=== PATIENT | female | born 1970 | race Caucasian/White ===

== ENCOUNTER 2016-12-20 03:10 | Inpatient (IN) | payer OTHER ==
[~2016-12-20] VITALS: Ht 152.4 cm; Wt 83.4 kg
[2016-12-20] VITALS (17 sets, daily range): BP systolic 90–119; BP diastolic 50–74; PULSE 60–99; RESP 16–29; TEMP 97.9–98.3; O2SAT 88–100
[2016-12-20] MEDS ORDERED: ZYRTEC PO (03:30)
[2016-12-20] MEDS ORDERED: SODIUM CHLOR 0.9% 1000 ML INJ 1,000 ML IV ONE (04:45)
[2016-12-20] MEDS ORDERED: TRAM50TA PO (05:02)
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
[2016-12-20] MEDS ORDERED: HYDROmorphone HCL PF 1 MG/ML VIAL IV PUSH ONE ×2 (05:15→07:15)
[2016-12-20] MEDS ORDERED: KETOROLAC TROMETHAMINE 30 MG/ML (IVP) VIAL IV PUSH ONE (05:15)
[2016-12-20] MEDS ORDERED: SODIUM CHLORIDE 0.9% FLUSH 10 ML FLUSH IVF PRN ×3 (06:00→07:30)
[2016-12-20] MEDS ORDERED: IOHEXOL 350 MG/ML 10 ML VIAL (for RAD DIAG) IV ONE ×2 (06:15→07:00)
[2016-12-20 06:17] LABS: AUTOMATED NEUTROPHIL # 19.2 TH/MM3 (1.8-7.7); BASOPHIL # 0.1 TH/MM3 (0-0.2); BASOPHIL % 0.3 % (0.0-2.0); EOSINOPHIL % 0.1 % (0.0-4.0); HEMATOCRIT 38.5 % (35.0-46.0); HEMO FLAGS DIFF FINAL; LYMPH % 6.2 % (9.0-44.0); LYMPHOCYTE # 1.3 TH/MM3 (1.0-4.8); MEAN CORPUSCULAR HEMOGLOBIN 30.2 PG (27.0-34.0); MEAN CORPUSCULAR HGB CONC 32.8 % (32.0-36.0); MONO % 4.5 % (0.0-8.0); NEUT % 88.9 % (16.0-70.0); PLATELET COUNT 298 TH/MM3 (150-450); RED BLOOD COUNT 4.19 MIL/MM3 (4.00-5.30); RED CELL DISTRIBUTION WIDTH 13.1 % (11.6-17.2); WHITE BLOOD COUNT 21.6 TH/MM3 (4.0-11.0)
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
[2016-12-20 06:50] LABS: BICARBONATE 20.9 MEQ/L (21.0-32.0); POTASSIUM 3.4 MEQ/L (3.5-5.1)
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
[2016-12-20] MEDS ORDERED: ACETAMINOPHEN 325 MG TAB PO PRN (07:30)
[2016-12-20] MEDS ORDERED: CHLORHEXIDINE GLUCONATE 2 % 1 PACK (2 CLOTHS) TOP PRN (07:30)
[2016-12-20] MEDS ORDERED: SODIUM CHLORIDE 0.9% FLUSH 10 ML FLUSH IV FLUSH PRN (07:30)
[2016-12-20] MEDS ORDERED: MISCELLANEOUS NURSING INFORMATION XX SCH (07:30)
[2016-12-20] MEDS ORDERED: ONDANSETRON HCL 4 MG/2 ML VIAL IV PRN ×2 (07:30)
[2016-12-20] MEDS ORDERED: ENALAPRILAT 1.25 MG/ML VIAL IV PRN (07:30)
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
[2016-12-20] MEDS ORDERED: BISACODYL 10 MG SUPP RECTAL PRN (08:00)
[2016-12-20] MEDS: ACETAMINOPHEN 1000 MG/100 ML VIAL IV SCH ×3 (09:00→21:01)
[2016-12-20] MEDS: DOCUSATE SODIUM 50 MG/SENNA 8.6 MG TAB PO SCH ×2 (09:00→21:00)
[2016-12-20] MEDS: METHOCARBAMOL INJ 1,000 MG in SODIUM CHLOR 0.9% 250 ML INJ 240 ML IV SCH ×2 (09:00→15:31)
--- NOTE | 2016-12-20 09:10 | RADRPT ---
EXAM DATE/TIME: 12/20/2016 08:43 [facility] COMPARISON: CT THORACIC SPINE W/O CONTRAST, December 20, 2016, 6:12. INDICATIONS : Trauma. MEDICAL HISTORY : None. SURGICAL HISTORY : None. ENCOUNTER: Initial ACUITY: 1 day PAIN SCORE: 5/10 LOCATION: Paraspinal TECHNIQUE: Multiplanar multisequence MRI of the thoracic spine was performed. FINDINGS: Multiple fractures are present discussed in detail on the prior CT examination the worst area is a co mpression fracture of T5 which is basically a burst fracture with approximate 60% reduction in the mi d height. T1-T2: No appreciable compromise to the thecal sac, spinal cord, or the exiting nerve roots are seen. The neural foramina are grossly patent bilaterally. T2-T3: No appreciable compromise to the thecal sac, spinal cord, or the exiting nerve roots are seen. The neural foramina are grossly patent bilaterally. T3-T4: No appreciable compromise to the thecal sac, spinal cord, or the exiting nerve roots are seen. The neural foramina are grossly patent bilaterally. T4-T5: No appreciable compromise to the thecal sac, spinal cord, or the exiting nerve roots are seen. The neural foramina are grossly patent bilaterally. T5-T6: There is effacement of the anterior CSF space due to retropulsed fragment with compromise to the anterior CSF space abutting the anterior portion of the spinal cord, however overall no signif icant thecal sac stenosis is seen and there is no cord compression. T6-T7: No appreciable compromise to the thecal sac, spinal cord, or the exiting nerve roots are seen. The neural foramina are grossly patent bilaterally. T7-T8: No appreciable compromise to the thecal sac, spinal cord, or the exiting nerve roots are seen. The neural foramina are grossly patent bilaterally. T8-T9: No appreciable compromise to the thecal sac, spinal cord, or the exiting nerve roots are seen. The neural foramina are grossly patent bilaterally. T9-T10: No appreciable compromise to the thecal sac, spinal cord, or the exiting nerve roots are see n. The neural foramina are grossly patent bilaterally. T10-T11: No appreciable compromise to the thecal sac, spinal cord, or the exiting nerve roots are se en. The neural foramina are grossly patent bilaterally. T11-T12: No appreciable compromise to the thecal sac, spinal cord, or the exiting nerve roots are se en. The neural foramina are grossly patent bilaterally. T12-L1: No appreciable compromise to the thecal sac, spinal cord, or the exiting nerve roots are s een. The neural foramina are grossly patent bilaterally. CONCLUSION: Multiple fractures discussed in detail on the prior CT examination best seen on CT wi th approximate 60% compression burst fracture of T5 retropulsed fragment at this site abutting the an terior portion of the spinal cord without any significant cord compression. Herb Ortega MD on December 20, 2016 at 9:03 Board Certified Radiologist. This report was verified electronically.
[2016-12-20] MEDS: SODIUM CHLOR 0.9% 1000 ML INJ 1,000 ML IV SCH ×2 (09:45→21:03)
[2016-12-20] MEDS ORDERED: LIDOCAINE HCL 1% 50 ML VIAL ONE (09:58)
[2016-12-20] MEDS ORDERED: NALOXONE HCL 0.4 MG/ML AMP IV PRN (11:15)
[2016-12-20] MEDS: MORPHINE SULFATE 30 MG/30 ML PCA IV SCH ×2 (12:08→18:17)
--- NOTE | 2016-12-20 12:10 | RADRPT ---
EXAM DATE/TIME: 12/20/2016 11:59 [facility] COMPARISON: CT THORAX W CONTRAST, December 20, 2016, 6:12. CT ABDOMEN & PELVIS W CONTRAST, December 20, 2016, 6:56. [facility] SINGLE AP, December 20, 2016, 4:42. INDICATIONS : Post left side chest tube placement. MEDICAL HISTORY : None. SURGICAL HISTORY : None. ENCOUNTER: Initial ACUITY: 1 day PAIN SCORE: 8/10 LOCATION: Bilateral chest FINDINGS: Interval placement of left-sided pigtail chest tube. No significant residual pneumothorax. Minimal miller bcutaneous emphysema at the insertion site. Lungs are hypoaerated with mild by basilar airspace disea se. Cardiomediastinal contours are stable. Redemonstration of multiple rib fractures and upper thorac ic vertebral fractures. CONCLUSION: 1. Status post left-sided chest tube placement with no significant residual pneumothorax. Yfn Villafana MD on December 20, 2016 at 12:06 Board Certified Radiologist. This report was verified electronically.
[2016-12-20] MEDS: PCA - TOTAL MG MORPHINE DELIVERED PER SHIFT SCH ×2 (14:00→21:08)
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
[2016-12-20] MEDS: REMOVE OLD LIDOCAINE PATCH T-DERMAL SCH (21:00)
[2016-12-20] MEDS: SODIUM CHLORIDE 0.9% FLUSH 10 ML FLUSH IV FLUSH SCH ×2 (21:03→21:07)
[2016-12-20] MEDS: LIDOCAINE HCL 5% PATCH T-DERMAL SCH (21:04)
[2016-12-20] MEDS: PANTOPRAZOLE SODIUM 40 MG VIAL IVP SCH (21:04)
[2016-12-20] MEDS: BACITRACIN TOP OINT 15 GM TUBE TOP SCH ×2 (21:05→21:09)
[2016-12-21] VITALS (14 sets, daily range): BP systolic 90–144; BP diastolic 55–72; PULSE 66–96; RESP 15–32; TEMP 97.8–98.8; O2SAT 93–96
[2016-12-21] MEDS: METHOCARBAMOL INJ 1,000 MG in SODIUM CHLOR 0.9% 250 ML INJ 240 ML IV SCH ×3 (01:41→17:00)
[2016-12-21] MEDS: ACETAMINOPHEN 1000 MG/100 ML VIAL IV SCH (03:15)
[2016-12-21 04:15] LABS: BASOPHIL % 0.4 % (0.0-2.0); EOSINOPHIL % 0.4 % (0.0-4.0); HEMO FLAGS DIFF FINAL; LYMPH % 11.4 % (9.0-44.0); MEAN CELL VOLUME 90.9 FL (80.0-100.0); MEAN CORPUSCULAR HEMOGLOBIN 31.1 PG (27.0-34.0); MEAN CORPUSCULAR HGB CONC 34.2 % (32.0-36.0); NEUT % 79.8 % (16.0-70.0); PLATELET COUNT 223 TH/MM3 (150-450); RED BLOOD COUNT 3.52 MIL/MM3 (4.00-5.30); RED CELL DISTRIBUTION WIDTH 13.1 % (11.6-17.2); WHITE BLOOD COUNT 8.8 TH/MM3 (4.0-11.0)
[2016-12-21] MEDS: CHLORHEXIDINE GLUCONATE 2 % 1 PACK (2 CLOTHS) TOP SCH (04:34)
[2016-12-21] MEDS: MORPHINE SULFATE 30 MG/30 ML PCA IV SCH ×2 (04:34→14:41)
[2016-12-21 04:50] LABS: ALKALINE PHOSPHATASE 84 U/L (45-117); ALT (GPT) 27 U/L (10-53); ANION GAP 11 MEQ/L (5-15); AST (GOT) 34 U/L (15-37); BICARBONATE 23.1 MEQ/L (21.0-32.0); BLOOD UREA NITROGEN 8 MG/DL (7-18); CHLORIDE 105 MEQ/L (98-107); GLOMERULAR FILTRATION RATE 148 ML/MIN (>89); POTASSIUM 3.7 MEQ/L (3.5-5.1); SODIUM (NA) 139 MEQ/L (136-145); TOTAL BILIRUBIN ADULT 0.7 MG/DL (0.2-1.0)
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
[2016-12-21] MEDS: PCA - TOTAL MG MORPHINE DELIVERED PER SHIFT SCH ×3 (06:55→21:11)
[2016-12-21] MEDS: BACITRACIN TOP OINT 15 GM TUBE TOP SCH ×2 (09:00→20:58)
[2016-12-21] MEDS: DOCUSATE SODIUM 50 MG/SENNA 8.6 MG TAB PO SCH ×2 (09:02→20:56)
[2016-12-21] MEDS: LACTULOSE SYRUP 20 GM/30 ML CUP PO SCH (09:02)
[2016-12-21] MEDS: PANTOPRAZOLE SODIUM 40 MG VIAL IVP SCH (09:03)
[2016-12-21] MEDS: SODIUM CHLORIDE 0.9% FLUSH 10 ML FLUSH IV FLUSH SCH ×2 (09:03→20:56)
[2016-12-21] MEDS: LIDOCAINE HCL 5% PATCH T-DERMAL SCH (09:13)
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
[2016-12-21] MEDS ORDERED: CETI10 PO (10:34)
[2016-12-21] MEDS: SODIUM CHLOR 0.9% 1000 ML INJ 1,000 ML IV SCH (10:45)
[2016-12-21] MEDS ORDERED: SODIUM CHLOR 0.9% 250 ML INJ 250 ML IV ONE (11:30)
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
--- NOTE | 2016-12-21 17:14 | OTSOAPIP ---
TIME SESSION COMPLETED: AM TREATMENT TIME: 0 MINS. CHART REVIEWED. RECEIVED ORDERS FROM ELIZABETH VILLATORO. PT IS ON STRICT BED REST PER NEUROSURGERY DR. ELIZONDO DUE TO UNSTABLE BURST FRACTURE AND PENDING SURGICAL STABILIZATION. WILL HOLD AND INITIATE ORDERS WHEN STABLE. Therapist: BLAKE SUAREZ OT/L Signature on file
--- NOTE | 2016-12-21 18:10 | EKG ---
Date Performed: 12/20/2016 Time Performed: 06:39:30 PTAGE: 46 years EKG: Sinus rhythm NONSPECIFIC T-WAVE ABNORMALITY BORDERLINE ECG NO PREVIOUS TRACING DOCTOR: Diogenes Zuleta Interpretating Date/Time 12/22/2016 09:05:41
--- NOTE | 2016-12-21 18:11 | EKG ---
Date Performed: 12/20/2016 Time Performed: 08:22:39 PTAGE: 46 years EKG: Sinus rhythm NONSPECIFIC T-WAVE ABNORMALITY BORDERLINE ECG PREVIOUS TRACING : 12/20/2016 06.39 Compared to prior tracing no significant change DOCTOR: Diogenes Zuleta Interpretating Date/Time 12/21/2016 18:09:59
--- NOTE | 2016-12-21 18:42 | ECHRPT ---
Indication: CHEST TRAUMA CONCLUSIONS Normal left ventricular size. Wall thickness is normal. The left ventricular systolic function is grossly normal on limited imaging, ef=65% No regional wall motion abnormalities are present. The right ventricle is mild to moderately dilated. The measurements were 63 x54 mm. Mild thickening of the mitral valve leaflets. [id number] mitral valve regurgitation. There is mild tricuspid valve regurgitation. There is estimated moderate pulmonary hypertension present (range 50-60 mmHg). Bilateral pleural effusion are present BP: 105 / 57 HR: 78 Rhythm: Sinus MEASUREMENTS (Male / Female) Normal Values Technical Quality:Fair 2D ECHO LV Diastolic Diameter PLAX 5.3 cm 4.2 - 5.9 / 3.9 - 5.3 cm LV Systolic Diameter PLAX 3.3 cm IVS Diastolic Thickness 0.8 cm 0.6 - 1.0 / 0.6 - 0.9 cm LVPW Diastolic Thickness 0.8 cm 0.6 - 1.0 / 0.6 - 0.9 cm LV Relative Wall Thickness 0.3 LVOT Diameter 1.9 cm Aortic Root Diameter 2.7 cm LA Systolic Diameter LX 3.0 cm 3.0 - 4.0 / 2.7 - 3.8 cm M-MODE AV Cusp Separation MM 2.0 cm DOPPLER AV Peak Velocity 150.0 cm/s AV Peak Gradient 9.0 mmHg AV Mean Gradient 4.0 mmHg AV Velocity Time Integral 26.1 cm LVOT Peak Velocity 64.7 cm/s LVOT Peak Gradient 1.7 mmHg LVOT Velocity Time Integral 12.1 cm LVOT Cardiac Index 1421.8 cm/minm AV Area Cont Eq vti 1.3 cm AV Area Cont Eq pk 1.2 cm Mitral E Point Velocity 82.9 cm/s Mitral A Point Velocity 65.2 cm/s Mitral E to A Ratio 1.3 LV E' Lateral Velocity 12.4 cm/s Mitral E to LV E' Lateral Ratio 6.7 LV E' Septal Velocity 7.9 cm/s Mitral E to LV E' Septal Ratio 10.5 TR Peak Velocity 326.0 cm/s TR Peak Gradient 42.5 mmHg PV Peak Velocity 73.7 cm/s PV Peak Gradient 2.2 mmHg FINDINGS LEFT VENTRICLE Normal left ventricular size. Wall thickness is normal. The left ventricular systolic function is grossly normal on limited imaging. No regional wall motion abnormalities are present. Left ventricular diastolic function parameters are normal. RIGHT VENTRICLE The right ventricle is mild to moderately dilated. The measurements were 63 x54 mm. LEFT ATRIUM The left atrial size is normal. RIGHT ATRIUM The right atrial size is normal. ATRIAL SEPTUM Normal atrial septal thickness without atrial level shunting by limited color doppler interrogation. AORTA The aortic root and proximal ascending aorta are normal in size on limited imaging. MITRAL VALVE Mild thickening of the mitral valve leaflets. [id number] mitral valve regurgitation. AORTIC VALVE Trileaflet aortic valve. No aortic valve stenosis or regurgitation. TRICUSPID VALVE Structurally normal tricuspid valve. There is mild tricuspid valve regurgitation. There is estimated moderate pulmonary hypertension present (range 50-60 mmHg). PULMONARY VALVE The pulmonary valve is not well visualized. VESSELS The inferior vena cava is normal in size. PERICARDIUM Bilateral pleural effusion are present Diogenes Zuleta MD, FACC, [facility] [place] (Electronically Signed) Final Date:21 December 2016 18:41
[2016-12-21] MEDS: REMOVE OLD LIDOCAINE PATCH T-DERMAL SCH (21:10)
[2016-12-22] VITALS (8 sets, daily range): BP systolic 103–115; BP diastolic 59–76; PULSE 70–86; RESP 17–22; TEMP 97.8–98.1; O2SAT 93–96
[2016-12-22] MEDS: SODIUM CHLOR 0.9% 1000 ML INJ 1,000 ML IV SCH ×2 (00:04→11:45)
[2016-12-22] MEDS: METHOCARBAMOL INJ 1,000 MG in SODIUM CHLOR 0.9% 250 ML INJ 240 ML IV SCH ×3 (00:35→18:07)
[2016-12-22] MEDS: MORPHINE SULFATE 30 MG/30 ML PCA IV SCH ×2 (02:18→22:24)
[2016-12-22] MEDS: CHLORHEXIDINE GLUCONATE 2 % 1 PACK (2 CLOTHS) TOP SCH (03:47)
--- NOTE | 2016-12-22 04:51 | RADRPT ---
EXAM DATE/TIME: 12/22/2016 04:15 [facility] COMPARISON: CHEST SINGLE AP, December 21, 2016, 5:16. INDICATIONS : Evaluate pnuemothorax, left side chest tube MEDICAL HISTORY : None. SURGICAL HISTORY : None. ENCOUNTER: Subsequent ACUITY: 4 - 6 days PAIN SCORE: 8/10 LOCATION: Bilateral chest FINDINGS: Portable AP view of the chest demonstrates cardiac silhouette size at the upper limits for normal. Le ft chest tube is present and no pneumothorax is visualized. There is stable bibasilar airspace opacit y. Rib fractures are present on the left. CONCLUSION: 1. Underinflation with bibasilar airspace opacity representing atelectasis or consolidation. 2. Left chest tube is present and no pneumothorax is seen. Pop Avila MD on December 22, 2016 at 4:49 Board Certified Radiologist. This report was verified electronically.
[2016-12-22 04:58] LABS: HEMATOCRIT 32.4 % (35.0-46.0); MEAN CELL VOLUME 92.2 FL (80.0-100.0); MEAN CORPUSCULAR HEMOGLOBIN 31.4 PG (27.0-34.0); PLATELET COUNT 198 TH/MM3 (150-450); RED BLOOD COUNT 3.51 MIL/MM3 (4.00-5.30); REVIEW FLAG FINAL; WHITE BLOOD COUNT 9.1 TH/MM3 (4.0-11.0)
[2016-12-22 05:14] LABS: BICARBONATE 21.2 MEQ/L (21.0-32.0); MAGNESIUM 2.3 MG/DL (1.5-2.5); POTASSIUM 3.8 MEQ/L (3.5-5.1)
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
[2016-12-22] MEDS: PCA - TOTAL MG MORPHINE DELIVERED PER SHIFT SCH ×3 (06:36→23:06)
[2016-12-22] MEDS ORDERED: ACETAMINOPHEN 1000 MG/100 ML VIAL IV ONE (08:30)
[2016-12-22] MEDS ORDERED: KETAMINE HCL 500 MG/5 ML VIAL ONE (08:31)
[2016-12-22] MEDS ORDERED: ARTIFICIAL TEARS OPTH OINT 3.5 APPLIC/3.5 GM TUBO ONE (08:31)
[2016-12-22] MEDS ORDERED: FAMOTIDINE 20 MG/2 ML VIAL ONE (08:31)
[2016-12-22] MEDS ORDERED: MIDAZOLAM HCL 2 MG/2 ML VIAL ONE (08:31)
[2016-12-22] MEDS ORDERED: fentaNYL CITRATE 250 MCG/5 ML AMP ONE ×4 (08:31→13:56)
[2016-12-22] MEDS ORDERED: GELFOAM SIZE 100 ONE (08:33)
[2016-12-22] MEDS ORDERED: LIDOCAINE 1%/EPINEPHrine 1:100,000 SOLN 20 ML VIAL ONE ×2 (08:33→11:37)
[2016-12-22] MEDS ORDERED: THROMBIN (TOPICAL) 5,000 UNIT VIAL ONE (08:33)
[2016-12-22] MEDS ORDERED: GENTAMICIN SULFATE 80 MG/2 ML VIAL ONE (08:33)
[2016-12-22] MEDS: PANTOPRAZOLE SODIUM 40 MG VIAL IVP SCH (08:34)
[2016-12-22] MEDS: SODIUM CHLORIDE 0.9% FLUSH 10 ML FLUSH IV FLUSH SCH ×2 (09:00→21:37)
[2016-12-22] MEDS: LACTULOSE SYRUP 20 GM/30 ML CUP PO SCH (09:00)
[2016-12-22] MEDS: DOCUSATE SODIUM 50 MG/SENNA 8.6 MG TAB PO SCH ×2 (09:00→21:36)
[2016-12-22] MEDS: BACITRACIN TOP OINT 15 GM TUBE TOP SCH ×2 (09:00→21:37)
[2016-12-22] MEDS: LIDOCAINE HCL 5% PATCH T-DERMAL SCH (09:00)
[2016-12-22] MEDS ORDERED: ePHEDrine/NS 25 MG/5 ML SYR IV ONE (12:00)
[2016-12-22] MEDS ORDERED: PHENYLEPH/NS 1000 MCG/10 ML SYR IV ONE (12:00)
[2016-12-22] MEDS ORDERED: NORMOSOL R INJ 1,000 ML IV ONE (12:00)
[2016-12-22] MEDS ORDERED: PROPOFOL 200 MG/20 ML AMP IV ONE (12:00)
[2016-12-22] MEDS ORDERED: SODIUM CHLORID 0.9% 500 ML INJ 500 ML IV ONE (12:00)
[2016-12-22] MEDS ORDERED: ONDANSETRON HCL 4 MG/2 ML VIAL IV PUSH ONE (12:00)
[2016-12-22] MEDS ORDERED: LACTATED RINGER'S 1000 ML INJ 1,000 ML IV ONE (12:00)
[2016-12-22] MEDS ORDERED: ceFAZolin INJ 1,000 MG VIAL IV ONE (12:00)
--- NOTE | 2016-12-22 15:29 | RADRPT ---
EXAM DATE/TIME: 12/22/2016 10:37 [facility] COMPARISON: MRI THORACIC SPINE W/O CONTRAST, December 20, 2016, 8:43. INDICATIONS : T3-T7 Posterior fusion. Laminectomy at T5. MEDICAL HISTORY : Smoker. SURGICAL HISTORY : None. ENCOUNTER: Subsequent ACUITY: 2 days PAIN SCORE: Non-responsive. LOCATION: Thoracic spine. FINDINGS: Patient is status post transpedicular fixation from T3-T7. Alignment is anatomic. CONCLUSION: Anatomic alignment. Carlos Fortune MD FACR on December 22, 2016 at 15:24 Board Certified Radiologist. This report was verified electronically.
[2016-12-22] MEDS ORDERED: *RESP: ALBUTEROL 2.5 MG/3 ML NEB (PRN) PERIprocedural Use ONLY NEB ONE (16:17)
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
[2016-12-22] MEDS ORDERED: DO NOT ADM ANY ANTICOAGULANT DRUGS PRN (17:15)
[2016-12-22 17:25] LABS: HEMATOCRIT 31.1 % (35.0-46.0); MEAN CELL VOLUME 90.7 FL (80.0-100.0); MEAN CORPUSCULAR HGB CONC 34.1 % (32.0-36.0); PLATELET COUNT 196 TH/MM3 (150-450); RED BLOOD COUNT 3.42 MIL/MM3 (4.00-5.30); RED CELL DISTRIBUTION WIDTH 12.9 % (11.6-17.2); REVIEW FLAG FINAL; WHITE BLOOD COUNT 10.7 TH/MM3 (4.0-11.0)
[2016-12-22 17:44] LABS: POTASSIUM 3.7 MEQ/L (3.5-5.1)
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
[2016-12-22] MEDS: HYDROmorphone HCL PF 4 MG/ML VIAL IV PUSH PRN (19:28)
[2016-12-22] MEDS: REMOVE OLD LIDOCAINE PATCH T-DERMAL SCH (20:01)
[2016-12-23] VITALS (13 sets, daily range): BP systolic 115–143; BP diastolic 60–76; PULSE 68–89; RESP 14–30; TEMP 98–99.1; O2SAT 94–100
[2016-12-23] MEDS: SODIUM CHLOR 0.9% 1000 ML INJ 1,000 ML IV SCH (01:47)
[2016-12-23] MEDS: METHOCARBAMOL INJ 1,000 MG in SODIUM CHLOR 0.9% 250 ML INJ 240 ML IV SCH (01:47)
[2016-12-23] MEDS: CHLORHEXIDINE GLUCONATE 2 % 1 PACK (2 CLOTHS) TOP SCH (04:53)
[2016-12-23 06:03] LABS: AUTOMATED NEUTROPHIL # 5.6 TH/MM3 (1.8-7.7); BASOPHIL % 0.3 % (0.0-2.0); EOSINOPHIL % 0.5 % (0.0-4.0); HEMATOCRIT 27.2 % (35.0-46.0); HEMO FLAGS DIFF FINAL; LYMPH % 14.9 % (9.0-44.0); LYMPHOCYTE # 1.1 TH/MM3 (1.0-4.8); MEAN CELL VOLUME 90.4 FL (80.0-100.0); MEAN CORPUSCULAR HEMOGLOBIN 31.1 PG (27.0-34.0); MEAN CORPUSCULAR HGB CONC 34.4 % (32.0-36.0); MONO % 9.1 % (0.0-8.0); NEUT % 75.2 % (16.0-70.0); PLATELET COUNT 193 TH/MM3 (150-450); RED BLOOD COUNT 3.01 MIL/MM3 (4.00-5.30); RED CELL DISTRIBUTION WIDTH 12.8 % (11.6-17.2); WHITE BLOOD COUNT 7.4 TH/MM3 (4.0-11.0)
--- NOTE | 2016-12-23 06:21 | RADRPT ---
EXAM DATE/TIME: 12/23/2016 04:59 [facility] COMPARISON: CHEST SINGLE AP, December 22, 2016, 4:15. INDICATIONS : Shortness of breath. MEDICAL HISTORY : None. SURGICAL HISTORY : T3-T7 Posterior fusion. ENCOUNTER: Subsequent ACUITY: 3 days PAIN SCORE: Non-responsive. LOCATION: Bilateral chest FINDINGS: Portable AP view of the chest demonstrates a normal-sized cardiac silhouette. Thoracic spine hardware is now present. A left chest tube is present and no pneumothorax is visualized. There is atelectasis at the left lung base and there is a small right basilar pleural-parenchymal opacity. CONCLUSION: 1. Stable right basilar opacity likely representing pleural effusion with associated volume loss and or airspace consolidation. 2. Left chest tube is present no pneumothorax is visualized. Pop Avila MD on December 23, 2016 at 6:19 Board Certified Radiologist. This report was verified electronically.
[2016-12-23 06:47] LABS: ALKALINE PHOSPHATASE 75 U/L (45-117); ALT (GPT) 31 U/L (10-53); ANION GAP 9 MEQ/L (5-15); AST (GOT) 59 U/L (15-37); BICARBONATE 22.4 MEQ/L (21.0-32.0); BLOOD UREA NITROGEN 4 MG/DL (7-18); CHLORIDE 110 MEQ/L (98-107); GLOMERULAR FILTRATION RATE 273 ML/MIN (>89); MAGNESIUM 2.4 MG/DL (1.5-2.5); POTASSIUM 3.8 MEQ/L (3.5-5.1); SODIUM (NA) 141 MEQ/L (136-145); TOTAL BILIRUBIN ADULT 0.4 MG/DL (0.2-1.0)
[2016-12-23] MEDS: MORPHINE SULFATE 30 MG/30 ML PCA IV SCH (07:13)
[2016-12-23] MEDS: PCA - TOTAL MG MORPHINE DELIVERED PER SHIFT SCH (07:16)
[2016-12-23] MEDS: HYDROmorphone HCL PF 4 MG/ML VIAL IV PUSH PRN (07:45)
[2016-12-23] MEDS: LACTULOSE SYRUP 20 GM/30 ML CUP PO SCH (08:46)
[2016-12-23] MEDS: SODIUM CHLORIDE 0.9% FLUSH 10 ML FLUSH IV FLUSH SCH ×2 (08:46→20:55)
[2016-12-23] MEDS: PANTOPRAZOLE SODIUM 40 MG VIAL IVP SCH (08:46)
[2016-12-23] MEDS: DOCUSATE SODIUM 50 MG/SENNA 8.6 MG TAB PO SCH ×2 (08:46→20:55)
[2016-12-23] MEDS: BACITRACIN TOP OINT 15 GM TUBE TOP SCH ×2 (08:47→20:55)
[2016-12-23] MEDS: LIDOCAINE HCL 5% PATCH T-DERMAL SCH (08:47)
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
[2016-12-23] MEDS ORDERED: NALOXONE HCL 0.4 MG/ML AMP IV PRN (11:00)
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
[2016-12-23] MEDS: HYDROmorphone HCL PCA 6 MG/30 ML IV SCH ×2 (11:36→18:52)
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
[2016-12-23] MEDS: REMOVE OLD LIDOCAINE PATCH T-DERMAL SCH (20:55)
[2016-12-23] MEDS: PCA - TOTAL MG DILAUDID DELIVERED PER SHIFT OTHER SCH (22:00)
[2016-12-24] VITALS (7 sets, daily range): BP systolic 104–133; BP diastolic 58–75; PULSE 80–92; RESP 16–21; TEMP 95.7–98.2; O2SAT 93–96
[2016-12-24] MEDS: HYDROmorphone HCL PCA 6 MG/30 ML IV SCH ×3 (02:04→17:38)
[2016-12-24] MEDS: PCA - TOTAL MG DILAUDID DELIVERED PER SHIFT OTHER SCH ×4 (06:00→22:00)
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
[2016-12-24] MEDS: DOCUSATE SODIUM 50 MG/SENNA 8.6 MG TAB PO SCH ×2 (08:26→21:00)
[2016-12-24] MEDS: LACTULOSE SYRUP 20 GM/30 ML CUP PO SCH (08:26)
[2016-12-24] MEDS: LIDOCAINE HCL 5% PATCH T-DERMAL SCH (08:27)
[2016-12-24] MEDS: PANTOPRAZOLE SODIUM 40 MG VIAL IVP SCH (08:27)
[2016-12-24] MEDS: SODIUM CHLORIDE 0.9% FLUSH 10 ML FLUSH IV FLUSH SCH ×2 (08:28→21:00)
[2016-12-24] MEDS: BACITRACIN TOP OINT 15 GM TUBE TOP SCH (08:28)
[2016-12-24] MEDS ORDERED: BISACODYL EC 5 MG TABEC PO ONE (09:00)
[2016-12-24] MEDS ORDERED: BISACODYL 10 MG SUPP RECTAL ONE (09:00)
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
[2016-12-24] MEDS ORDERED: RESP: ALBUTEROL 2.5 MG/IPRATROPIUM 0.5 MG NEB (PRN) NEB (12:45)
[2016-12-24 14:42] LABS: AUTOMATED NEUTROPHIL # 6.5 TH/MM3 (1.8-7.7); BASOPHIL % 0.5 % (0.0-2.0); EOSINOPHIL # 0.3 TH/MM3 (0-0.4); HEMATOCRIT 30.1 % (35.0-46.0); HEMO FLAGS DIFF FINAL; LYMPHOCYTE # 1.3 TH/MM3 (1.0-4.8); MEAN CELL VOLUME 91.8 FL (80.0-100.0); MEAN CORPUSCULAR HEMOGLOBIN 31.2 PG (27.0-34.0); MEAN CORPUSCULAR HGB CONC 33.9 % (32.0-36.0); NEUT % 73.5 % (16.0-70.0); PLATELET COUNT 254 TH/MM3 (150-450); RED BLOOD COUNT 3.28 MIL/MM3 (4.00-5.30); RED CELL DISTRIBUTION WIDTH 13.1 % (11.6-17.2); WHITE BLOOD COUNT 8.8 TH/MM3 (4.0-11.0)
[2016-12-24] MEDS: oxyCODONE/ACETAMINOPHEN 5 MG/325 MG TAB PO PRN (14:49)
[2016-12-24 15:02] LABS: ANION GAP 9 MEQ/L (5-15); AST (GOT) 73 U/L (15-37); BICARBONATE 22.1 MEQ/L (21.0-32.0); BLOOD UREA NITROGEN 4 MG/DL (7-18); CHLORIDE 106 MEQ/L (98-107); GLOMERULAR FILTRATION RATE 285 ML/MIN (>89); POTASSIUM 3.1 MEQ/L (3.5-5.1); SODIUM (NA) 137 MEQ/L (136-145)
[2016-12-24 15:03] LABS: ALT (GPT) 45 U/L (10-53)
[2016-12-24 15:06] LABS: ALKALINE PHOSPHATASE 109 U/L (45-117); TOTAL BILIRUBIN ADULT 0.7 MG/DL (0.2-1.0)
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
[2016-12-24] MEDS: MAGNESIUM HYDROXIDE SUSP 30 ML CUP PO SCH (21:00)
[2016-12-24] MEDS: FAMOTIDINE 20 MG TAB PO SCH (21:00)
[2016-12-25] VITALS: BP 106/62; PULSE 86; RESP 17; TEMP 99.3; O2SAT 93
[2016-12-25] MEDS: HYDROmorphone HCL PCA 6 MG/30 ML IV SCH ×3 (03:29→21:45)
[2016-12-25 04:00] VITALS: BP 125/69; PULSE 83; RESP 20; TEMP 97.6; O2SAT 94
[2016-12-25] MEDS: PCA - TOTAL MG DILAUDID DELIVERED PER SHIFT OTHER SCH ×3 (06:00→21:36)
--- NOTE | 2016-12-25 07:16 | RADRPT ---
EXAM DATE/TIME: 12/25/2016 06:24 [facility] COMPARISON: CHEST SINGLE AP, December 24, 2016, 6:13. INDICATIONS : Pain left chest and back, evaluate pneumothorax and chest tube on left MEDICAL HISTORY : pneumothorax, rib fracture SURGICAL HISTORY : thoracic spine fusion ENCOUNTER: Subsequent ACUITY: 1 week PAIN SCORE: 10/10 LOCATION: Left chest FINDINGS: The left chest tube remains in place. There is no pneumothorax. There's been no change in bilateral p ulmonary infiltrates. The heart size is stable. The bony structures are stable. CONCLUSION: 1. No pneumothorax. 2. No change in the bilateral pulmonary infiltrates. Ashutosh Chinchilla MD on December 25, 2016 at 7:14 Board Certified Radiologist. This report was verified electronically.
[2016-12-25 08:00] VITALS: BP 104/63; PULSE 77; RESP 20; TEMP 97.2; O2SAT 94
[2016-12-25 08:16] LABS: AUTOMATED NEUTROPHIL # 4.9 TH/MM3 (1.8-7.7); BASOPHIL % 0.5 % (0.0-2.0); EOSINOPHIL # 0.3 TH/MM3 (0-0.4); EOSINOPHIL % 3.8 % (0.0-4.0); HEMATOCRIT 27.3 % (35.0-46.0); HEMO FLAGS DIFF FINAL; LYMPH % 19.8 % (9.0-44.0); LYMPHOCYTE # 1.4 TH/MM3 (1.0-4.8); MEAN CELL VOLUME 90.2 FL (80.0-100.0); MEAN CORPUSCULAR HEMOGLOBIN 31.6 PG (27.0-34.0); MONO % 7.8 % (0.0-8.0); NEUT % 68.1 % (16.0-70.0); PLATELET COUNT 233 TH/MM3 (150-450); RED BLOOD COUNT 3.03 MIL/MM3 (4.00-5.30); RED CELL DISTRIBUTION WIDTH 12.7 % (11.6-17.2); WHITE BLOOD COUNT 7.2 TH/MM3 (4.0-11.0)
[2016-12-25 09:09] LABS: ANION GAP 9 MEQ/L (5-15); BICARBONATE 24.1 MEQ/L (21.0-32.0); BLOOD UREA NITROGEN 6 MG/DL (7-18); CHLORIDE 105 MEQ/L (98-107); POTASSIUM 3.1 MEQ/L (3.5-5.1); SODIUM (NA) 138 MEQ/L (136-145)
[2016-12-25 09:10] LABS: ALT (GPT) 36 U/L (10-53); GLOMERULAR FILTRATION RATE 313 ML/MIN (>89)
[2016-12-25 09:19] LABS: ALKALINE PHOSPHATASE 96 U/L (45-117); AST (GOT) 44 U/L (15-37); TOTAL BILIRUBIN ADULT 0.5 MG/DL (0.2-1.0)
[2016-12-25] MEDS ORDERED: MAGNESIUM CITRATE SOLN 300 ML BTL PO ONE (09:30)
[2016-12-25] MEDS: DOCUSATE SODIUM 50 MG/SENNA 8.6 MG TAB PO SCH ×2 (09:41→21:32)
[2016-12-25] MEDS: LACTULOSE SYRUP 20 GM/30 ML CUP PO SCH (09:41)
[2016-12-25] MEDS: LIDOCAINE HCL 5% PATCH T-DERMAL SCH (09:42)
[2016-12-25] MEDS: SODIUM CHLORIDE 0.9% FLUSH 10 ML FLUSH IV FLUSH SCH ×2 (09:42→21:35)
[2016-12-25] MEDS: BACITRACIN TOP OINT 15 GM TUBE TOP SCH ×2 (09:43→21:00)
[2016-12-25] MEDS ORDERED: POTASSIUM CHLORIDE 10 MEQ CONTROLLED RELEASE TAB PO ONE (10:00)
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
[2016-12-25 12:00] VITALS: BP 109/71; PULSE 83; RESP 20; TEMP 97.7; O2SAT 93
[2016-12-25] MEDS: oxyCODONE/ACETAMINOPHEN 5 MG/325 MG TAB PO PRN ×3 (13:13→21:33)
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
[2016-12-25 16:00] VITALS: BP 121/75; PULSE 82; RESP 20; TEMP 97; O2SAT 95
[2016-12-25] MEDS ORDERED: POTASSIUM CHLORIDE 20 MEQ CONTROLLED RELEASE TAB PO ONE (16:00)
[2016-12-25 20:05] VITALS: BP 115/65; PULSE 75; RESP 18; TEMP 97; O2SAT 98
[2016-12-25] MEDS: MAGNESIUM HYDROXIDE SUSP 30 ML CUP PO SCH (21:00)
[2016-12-25] MEDS: REMOVE OLD LIDOCAINE PATCH T-DERMAL SCH (21:00)
[2016-12-25] MEDS: FAMOTIDINE 20 MG TAB PO SCH (21:32)
[2016-12-26] VITALS (8 sets, daily range): BP systolic 102–111; BP diastolic 60–70; PULSE 75–90; RESP 16–20; TEMP 96.7–98.1; O2SAT 94–100
[2016-12-26 05:49] LABS: HEMATOCRIT 28.8 % (35.0-46.0); MEAN CELL VOLUME 90.4 FL (80.0-100.0); MEAN CORPUSCULAR HEMOGLOBIN 31.1 PG (27.0-34.0); MEAN CORPUSCULAR HGB CONC 34.4 % (32.0-36.0); RED BLOOD COUNT 3.19 MIL/MM3 (4.00-5.30); RED CELL DISTRIBUTION WIDTH 12.9 % (11.6-17.2); WHITE BLOOD COUNT 7.8 TH/MM3 (4.0-11.0)
[2016-12-26 05:50] LABS: AUTOMATED NEUTROPHIL # 5.2 TH/MM3 (1.8-7.7); BASOPHIL % 0.3 % (0.0-2.0); EOSINOPHIL # 0.3 TH/MM3 (0-0.4); EOSINOPHIL % 3.9 % (0.0-4.0); HEMO FLAGS DIFF FINAL; LYMPH % 20.2 % (9.0-44.0); LYMPHOCYTE # 1.6 TH/MM3 (1.0-4.8); MONO % 8.5 % (0.0-8.0); NEUT % 67.1 % (16.0-70.0); PLATELET COUNT 243 TH/MM3 (150-450)
[2016-12-26] MEDS: PCA - TOTAL MG DILAUDID DELIVERED PER SHIFT OTHER SCH (05:56)
--- NOTE | 2016-12-26 06:34 | RADRPT ---
EXAM DATE/TIME: 12/26/2016 06:03 [facility] COMPARISON: CHEST SINGLE AP, December 25, 2016, 6:24. INDICATIONS : Pain left chest and back, short of breath MEDICAL HISTORY : pneumothorax, rib fracture SURGICAL HISTORY : thoracic spine fusion ENCOUNTER: Subsequent ACUITY: 1 week PAIN SCORE: 10/10 LOCATION: Bilateral chest FINDINGS: Single AP view of the chest. Surgical hardware in the upper thoracic spine again seen. Bilateral mid to lower lung zone symmetric pulmonary parenchymal opacity and bilateral pleural effusions again seen . No significant interval change. Left-sided chest tube no longer seen. No evidence of pneumothorax. CONCLUSION: Left-sided chest tube no longer seen. No significant interval change in bilateral pulmonary opacity l ikely representing pulmonary edema along with bilateral pleural effusions. Juan M Fleming MD on December 26, 2016 at 6:31 Board Certified Radiologist. This report was verified electronically.
[2016-12-26 06:42] LABS: ALKALINE PHOSPHATASE 99 U/L (45-117); ALT (GPT) 36 U/L (10-53); ANION GAP 6 MEQ/L (5-15); AST (GOT) 38 U/L (15-37); BICARBONATE 27.8 MEQ/L (21.0-32.0); BLOOD UREA NITROGEN 6 MG/DL (7-18); CHLORIDE 105 MEQ/L (98-107); GLOMERULAR FILTRATION RATE 233 ML/MIN (>89); MAGNESIUM 2.1 MG/DL (1.5-2.5); SODIUM (NA) 139 MEQ/L (136-145); TOTAL BILIRUBIN ADULT 0.4 MG/DL (0.2-1.0)
[2016-12-26] MEDS: HYDROmorphone HCL PCA 6 MG/30 ML IV SCH (07:50)
[2016-12-26] MEDS: oxyCODONE/ACETAMINOPHEN 5 MG/325 MG TAB PO PRN ×4 (07:59→21:59)
[2016-12-26] MEDS: BACITRACIN TOP OINT 15 GM TUBE TOP SCH ×2 (08:00→21:00)
[2016-12-26] MEDS: DOCUSATE SODIUM 50 MG/SENNA 8.6 MG TAB PO SCH ×2 (08:00→21:57)
[2016-12-26] MEDS: LIDOCAINE HCL 5% PATCH T-DERMAL SCH (08:00)
[2016-12-26] MEDS: LACTULOSE SYRUP 20 GM/30 ML CUP PO SCH (08:00)
[2016-12-26] MEDS: METHOCARBAMOL 500 MG TAB PO SCH ×2 (13:18→21:58)
[2016-12-26] MEDS: SODIUM CHLORIDE 0.9% FLUSH 10 ML FLUSH IV FLUSH SCH ×2 (13:19→21:00)
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
[2016-12-26] MEDS: ENOXAPARIN SODIUM 40 MG/0.4 ML SYRINGE SQ SCH (17:16)
[2016-12-26] MEDS: REMOVE OLD LIDOCAINE PATCH T-DERMAL SCH (21:00)
[2016-12-26] MEDS ORDERED: FUROSEMIDE 40 MG/4 ML VIAL IV PUSH ONE (21:45)
[2016-12-26] MEDS: traZODone HCL 100 MG TAB PO SCH (21:57)
[2016-12-26] MEDS: MAGNESIUM HYDROXIDE SUSP 30 ML CUP PO SCH (21:58)
[2016-12-26] MEDS: FAMOTIDINE 20 MG TAB PO SCH (21:58)
--- NOTE | 2016-12-26 23:23 | RADRPT ---
EXAM DATE/TIME: 12/26/2016 22:21 [facility] COMPARISON: No previous studies available for comparison. INDICATIONS : Bilateral leg swelling. MEDICAL HISTORY : Gallbladder disease. Back pain. Muscle pain. Alcohol use. Tobacco use. SURGICAL HISTORY : Lymph node biopsy. ENCOUNTER: Initial ACUITY: 1 day PAIN SCORE: 1/10 LOCATION: Bilateral legs. TECHNIQUE: Venous ultrasound of the left and right leg was performed from the inguinal ligament to the proximal calf. Real-time, color Doppler and spectral tracing, compression and augmentation techniques were us ed. FINDINGS: RIGHT LEG: There is normal compressibility of the deep venous system from the inguinal region to the proximal ca lf. No echogenic clot is seen in the lumen of the common femoral, femoral, popliteal, and posterior tibial veins. There is a normal response of the venous system to proximal and distal augmentation an d respiration. LEFT LEG: There is normal compressibility of the deep venous system from the inguinal region to the proximal ca lf. No echogenic clot is seen in the lumen of the common femoral, femoral, popliteal, and posterior tibial veins. There is a normal response of the venous system to proximal and distal augmentation an d respiration. CONCLUSION: Normal examination. Small bilateral inguinal lymph nodes are noted Mt Bills MD on December 26, 2016 at 23:20 Board Certified Radiologist. This report was verified electronically.
[2016-12-27] VITALS (8 sets, daily range): BP systolic 93–115; BP diastolic 55–67; PULSE 75–87; RESP 16–18; TEMP 97.1–98; O2SAT 92–94
[2016-12-27] MEDS: KETOROLAC TROMETHAMINE 30 MG/ML (IVP) VIAL IV PUSH SCH ×4 (00:20→17:52)
[2016-12-27] MEDS: METHOCARBAMOL 500 MG TAB PO SCH ×3 (06:02→22:23)
[2016-12-27] MEDS: LIDOCAINE HCL 5% PATCH T-DERMAL SCH (08:57)
[2016-12-27] MEDS: SODIUM CHLORIDE 0.9% FLUSH 10 ML FLUSH IV FLUSH SCH ×2 (08:59→21:00)
[2016-12-27] MEDS: LACTULOSE SYRUP 20 GM/30 ML CUP PO SCH (08:59)
[2016-12-27] MEDS: BACITRACIN TOP OINT 15 GM TUBE TOP SCH (09:00)
[2016-12-27] MEDS: DOCUSATE SODIUM 50 MG/SENNA 8.6 MG TAB PO SCH ×2 (09:00→21:00)
[2016-12-27] MEDS: oxyCODONE/ACETAMINOPHEN 5 MG/325 MG TAB PO PRN ×2 (09:57→17:53)
[2016-12-27] MEDS ORDERED: fentaNYL 25 MCG/HR PATCH T-DERMAL SCH (12:15)
--- NOTE | 2016-12-27 13:11 | RADRPT ---
EXAM DATE/TIME: 12/27/2016 12:55 [facility] COMPARISON: CHEST SINGLE AP, December 26, 2016, 6:03. INDICATIONS : Shortness of breath. MEDICAL HISTORY : Gallbladder disease. Back pain. Muscle pain. Alcohol use. Tobacco use. SURGICAL HISTORY : Lymph node biopsy. ENCOUNTER: Subsequent ACUITY: 3 days PAIN SCORE: 0/10 LOCATION: Bilateral chest FINDINGS: There is interval improved aeration of the lungs compared to the previous examination. Residual atel ectasis and/or infiltrates are noted within the lung bases. Hardware is noted within the thoracic sp ine. The heart is stable. CONCLUSION: Improved aeration of the lungs compared to the previous examination. Mild residual bibasilar atelect asis and/or infiltrates are noted. Emile Arroyo MD on December 27, 2016 at 13:05 Board Certified Radiologist. This report was verified electronically.
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
[2016-12-27] MEDS: ENOXAPARIN SODIUM 40 MG/0.4 ML SYRINGE SQ SCH (15:31)
[2016-12-27] MEDS: traZODone HCL 100 MG TAB PO SCH (21:00)
[2016-12-27] MEDS: REMOVE OLD LIDOCAINE PATCH T-DERMAL SCH (21:00)
[2016-12-27] MEDS: MAGNESIUM HYDROXIDE SUSP 30 ML CUP PO SCH (21:00)
[2016-12-27] MEDS: FAMOTIDINE 20 MG TAB PO SCH (22:20)
[2016-12-28] VITALS (7 sets, daily range): BP systolic 98–118; BP diastolic 54–82; PULSE 67–91; RESP 16–18; TEMP 96.9–97.5; O2SAT 91–96
[2016-12-28] MEDS: oxyCODONE/ACETAMINOPHEN 5 MG/325 MG TAB PO PRN ×3 (01:07→09:55)
[2016-12-28] MEDS: METHOCARBAMOL 500 MG TAB PO SCH ×3 (06:00→20:34)
[2016-12-28] MEDS: BACITRACIN TOP OINT 15 GM TUBE TOP SCH ×2 (09:00→19:34)
[2016-12-28] MEDS: LIDOCAINE HCL 5% PATCH T-DERMAL SCH (09:49)
[2016-12-28] MEDS: DOCUSATE SODIUM 50 MG/SENNA 8.6 MG TAB PO SCH ×2 (09:55→19:40)
[2016-12-28] MEDS: LACTULOSE SYRUP 20 GM/30 ML CUP PO SCH (09:56)
[2016-12-28] MEDS: SODIUM CHLORIDE 0.9% FLUSH 10 ML FLUSH IV FLUSH SCH ×2 (09:56→19:36)
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
[2016-12-28] MEDS ORDERED: HYDROmorphone HCL PF 1 MG/ML VIAL IV PUSH PRN (13:15)
[2016-12-28] MEDS ORDERED: oxyCODONE/ACETAMINOPHEN 7.5 MG/325 MG TAB PO PRN (13:15)
[2016-12-28] MEDS: ENOXAPARIN SODIUM 40 MG/0.4 ML SYRINGE SQ SCH ×2 (14:02→19:34)
[2016-12-28] MEDS: oxyCODONE/ACETAMINOPHEN 7.5 MG/325 MG TAB PO PRN ×2 (14:05→20:35)
[2016-12-28] MEDS ORDERED: WHEEMIS3 (15:53)
[2016-12-28] MEDS ORDERED: WALKER WHEELS/F1 MIS (15:53)
[2016-12-28] MEDS ORDERED: BEDSIDE COMMODE1 MI1 (15:57)
[2016-12-28] MEDS: REMOVE OLD LIDOCAINE PATCH T-DERMAL SCH (19:31)
[2016-12-28] MEDS: traZODone HCL 100 MG TAB PO SCH (19:40)
[2016-12-28] MEDS: FAMOTIDINE 20 MG TAB PO SCH (19:43)
[2016-12-29] MEDS: METHOCARBAMOL 500 MG TAB PO SCH ×3 (04:36→21:16)
[2016-12-29] MEDS: oxyCODONE/ACETAMINOPHEN 7.5 MG/325 MG TAB PO PRN ×4 (04:36→21:16)
--- NOTE | 2016-12-29 07:35 | RADRPT ---
EXAM DATE/TIME: 12/29/2016 06:08 [facility] COMPARISON: CHEST SINGLE AP, December 27, 2016, 12:55. INDICATIONS : Short of breath, evaluate infiltrate MEDICAL HISTORY : rib fracture, pneumothorax, back pain SURGICAL HISTORY : thoracic spine fusion ENCOUNTER: Subsequent ACUITY: 1 week PAIN SCORE: 9/10 LOCATION: Bilateral chest FINDINGS: AP view the chest demonstrates stable posterior fusion hardware. The lungs are significant for bilate ral hazy opacities overlying the lung bases consistent with atelectasis versus pleural effusion. This appears progressed as compared to the prior exam. The heart size is normal. The osseous structures a re significant for a cortical discontinuity involving the lateral right fourth rib. CONCLUSION: Worsening bilateral basilar opacities consistent with pleural effusion versus atelectasis. Meche Martell MD on December 29, 2016 at 7:32 Board Certified Radiologist. This report was verified electronically.
[2016-12-29 07:49] VITALS: PULSE 76; RESP 17; TEMP 96.8; O2SAT 93
[2016-12-29] MEDS: SODIUM CHLORIDE 0.9% FLUSH 10 ML FLUSH IV FLUSH SCH ×2 (07:50→21:17)
[2016-12-29] MEDS: DOCUSATE SODIUM 50 MG/SENNA 8.6 MG TAB PO SCH ×2 (07:50→21:17)
[2016-12-29] MEDS: LACTULOSE SYRUP 20 GM/30 ML CUP PO SCH (07:50)
[2016-12-29] MEDS: LIDOCAINE HCL 5% PATCH T-DERMAL SCH (07:50)
[2016-12-29] MEDS: ENOXAPARIN SODIUM 40 MG/0.4 ML SYRINGE SQ SCH ×2 (07:50→21:16)
[2016-12-29 09:06] VITALS: BP 101/54
[2016-12-29 11:01] VITALS: BP 96/61; PULSE 71; RESP 22; TEMP 96.9; O2SAT 93
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
[2016-12-29 15:40] VITALS: BP 115/69; PULSE 69; RESP 21; TEMP 97.3; O2SAT 94
[2016-12-29 19:42] VITALS: BP 110/69; PULSE 84; RESP 18; TEMP 96.7; O2SAT 92
[2016-12-29] MEDS: traZODone HCL 100 MG TAB PO SCH (21:17)
[2016-12-29] MEDS: FAMOTIDINE 20 MG TAB PO SCH (21:17)
[2016-12-29] MEDS: REMOVE OLD LIDOCAINE PATCH T-DERMAL SCH (21:22)
[2016-12-29 23:05] VITALS: BP 97/53; PULSE 75; RESP 17; TEMP 97.6; O2SAT 92
[2016-12-30 04:20] VITALS: BP 92/54; PULSE 69; RESP 18; TEMP 97.1; O2SAT 93
[2016-12-30] MEDS: oxyCODONE/ACETAMINOPHEN 7.5 MG/325 MG TAB PO PRN ×5 (04:27→21:50)
[2016-12-30] MEDS: METHOCARBAMOL 500 MG TAB PO SCH ×3 (05:30→18:37)
[2016-12-30 08:00] VITALS: BP 102/59; PULSE 76; RESP 18; TEMP 97; O2SAT 95
[2016-12-30] MEDS: LACTULOSE SYRUP 20 GM/30 ML CUP PO SCH (10:26)
[2016-12-30] MEDS: REMOVE OLD LIDOCAINE PATCH T-DERMAL SCH (10:26)
[2016-12-30] MEDS: DOCUSATE SODIUM 50 MG/SENNA 8.6 MG TAB PO SCH ×2 (10:26→20:45)
[2016-12-30] MEDS: LIDOCAINE HCL 5% PATCH T-DERMAL SCH (10:26)
[2016-12-30] MEDS: ENOXAPARIN SODIUM 40 MG/0.4 ML SYRINGE SQ SCH ×2 (10:27→20:42)
[2016-12-30] MEDS: SODIUM CHLORIDE 0.9% FLUSH 10 ML FLUSH IV FLUSH SCH ×2 (10:30→20:43)
[2016-12-30 12:00] VITALS: BP 127/79; PULSE 87; RESP 18; TEMP 96.2; O2SAT 95
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
[2016-12-30] MEDS ORDERED: REMOVE OLD PATCH T-DERMAL SCH (12:15)
[2016-12-30] MEDS ORDERED: fentaNYL 75 MCG/HR PATCH T-DERMAL SCH (13:00)
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
[2016-12-30 16:00] VITALS: BP 105/67; PULSE 71; RESP 18; TEMP 96; O2SAT 97
[2016-12-30 19:18] VITALS: BP 108/67; PULSE 62; RESP 18; TEMP 97; O2SAT 93
[2016-12-30] MEDS: FAMOTIDINE 20 MG TAB PO SCH (20:42)
[2016-12-30] MEDS: traZODone HCL 100 MG TAB PO SCH (20:42)
[2016-12-30 23:47] VITALS: BP 98/59; PULSE 70; RESP 18; TEMP 96.7; O2SAT 92
[2016-12-31 04:44] VITALS: BP 96/59; PULSE 73; RESP 17; TEMP 97.6; O2SAT 94
[2016-12-31] MEDS: oxyCODONE/ACETAMINOPHEN 7.5 MG/325 MG TAB PO PRN ×3 (05:09→13:03)
[2016-12-31] MEDS: METHOCARBAMOL 500 MG TAB PO SCH ×2 (05:09→13:02)
[2016-12-31 08:00] VITALS: BP 80/53; PULSE 64; RESP 16; TEMP 96.4; O2SAT 93
[2016-12-31] MEDS: DOCUSATE SODIUM 50 MG/SENNA 8.6 MG TAB PO SCH (08:39)
[2016-12-31] MEDS: LACTULOSE SYRUP 20 GM/30 ML CUP PO SCH (08:39)
[2016-12-31] MEDS: LIDOCAINE HCL 5% PATCH T-DERMAL SCH (08:41)
[2016-12-31] MEDS: ENOXAPARIN SODIUM 40 MG/0.4 ML SYRINGE SQ SCH (08:41)
[2016-12-31] MEDS: SODIUM CHLORIDE 0.9% FLUSH 10 ML FLUSH IV FLUSH SCH (08:43)
[2016-12-31 11:10] VITALS: BP 104/67; PULSE 76; RESP 16; TEMP 97; O2SAT 96
[2016-12-31] MEDS ORDERED: METH500T3 PO (11:33)
[2016-12-31] MEDS ORDERED: SENN1TAB PO (11:33)
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
== END 2016-12-31 15:57 | disposition home health service (06) | DRG 958 ==
LOC: NEPE 03:10 → NEDA 06:46 → N03A 09:11 → N03B 12-23 14:06 → N06B 12-23 22:53 → N06A 12-28 17:45
PROVIDERS: ADMIT Surgery; ATTEND Surgery
PROC: 0W9B30Z Drainage of Left Pleural Cavity with Drainage Device, Percutaneous Approach (ICD-10-PCS; 2016-12-20)
PROC: 0T9B70Z Drainage of Bladder with Drainage Device, Via Natural or Artificial Opening (ICD-10-PCS; 2016-12-20)
PROC: 0PB20ZZ Excision of 3 or More Ribs, Open Approach (ICD-10-PCS; 2016-12-22)
PROC: 0RG7071 Fusion of 2 to 7 Thoracic Vertebral Joints with Autologous Tissue Substitute, Posterior Approach, Posterior Column, Open Approach (ICD-10-PCS; 2016-12-22)
PROC: 0PS40ZZ Reposition Thoracic Vertebra, Open Approach (ICD-10-PCS; principal; 2016-12-22 09:04)
DX: S22.052A Unstable burst fracture of T5-T6 vertebra, initial encounter for closed fracture (principal); S27.1XXA Traumatic hemothorax, initial encounter; S22.43XA Multiple fractures of ribs, bilateral, initial encounter for closed fracture; S06.9X9A Unspecified intracranial injury with loss of consciousness of unspecified duration, initial encounter; S22.031A Stable burst fracture of third thoracic vertebra, initial encounter for closed fracture; S22.21XA Fracture of manubrium, initial encounter for closed fracture; S27.322A Contusion of lung, bilateral, initial encounter; S22.042 Unstable burst fracture of fourth thoracic vertebra; S22.051A Stable burst fracture of T5-T6 vertebra, initial encounter for closed fracture; V49.9XXA Car occupant (driver) (passenger) injured in unspecified traffic accident, initial encounter; Y92.410 Unspecified street and highway as the place of occurrence of the external cause; Y93.89 Activity, other specified; F17.210 Nicotine dependence, cigarettes, uncomplicated; E87.6 Hypokalemia; G47.00 Insomnia, unspecified; S20.419A Abrasion of unspecified back wall of thorax, initial encounter
CPT/HCPCS: 70450; 71010; 71260; 72070; 72125; 72128; 72146; 74177; 76000; 80048; 80053; 83735; 85025; 85027; 86850; 86900; 86901; 86920; 93005; 93306; 93970; 94150; 94640; 94664; 94667; 94668; 96374; 96375; C1713; C9113; J0131; J0690; J1170; J1580; J1650; J1885; J1940; J2250; J2270; J2370; J2405; J2800; J3010; J7030; J7040; J7050; J7120; J7613; L0200; L0484; Q9967